=== PATIENT | female | born 1960 | race Caucasian/White ===

== ENCOUNTER → 2025-01-20 07:28 | Outpatient (REF) | payer MEDICARE, BC, SELFPAY | LOC: HWRAD 07:28 | PROVIDERS: ATTENDING PHYSICIAN Internal Medicine | DX: K80.20 Calculus of gallbladder without cholecystitis without obstruction (principal) | CPT/HCPCS: 76700 ==

== ENCOUNTER → 2025-03-11 10:40 | Outpatient (REF) | payer MEDICARE, BC, SELFPAY ==
[2025-03-11 11:25] LABS: Hematocrit 47.5 % (37.0-47.0); Hemoglobin 15.9 g/dL (12.0-16.0); Mean Corp Hgb Conc. 33.5 g/dL (33.0-37.0); Mean Corpuscular Hgb 29.9 pg (27.0-31.0); Mean Corpuscular Volume 89.3 fL (81.0-99.0); Mean Platelet Volume 9.3 fL (7.4-10.4); Platelet Count 225 10^3/uL (130-400); Red Blood Cell Count 5.32 10^6/uL (4.20-5.40); Red Cell Dist. Width 12.6 % (11.5-14.5)
[2025-03-11 11:51] LABS: ALT (SGPT) 58 U/L (0-35); AST (SGOT) 42 U/L (14-36); Albumin 4.5 g/dl (3.5-5.0); Alkaline Phosphatase 107 U/L (38-126); Blood Urea Nitrogen 18 mg/dl (7-17); Calcium 9.9 mg/dl (8.4-10.2); Carbon Dioxide 28 mmol/L (22-30); Chloride 107 mmol/L (98-107); Glucose 104 mg/dl (70-99); Potassium 4.9 mmol/L (3.5-5.1); Sodium 140 mmol/L (135-145); Total Bilirubin 0.8 mg/dl (0.2-1.3); Total Protein 7.2 g/dl (6.3-8.2); eGFR > 60.00
== END ==
LOC: SDSPAT 10:40
PROVIDERS: ATTENDING PHYSICIAN Surgery; FAMILY PHYSICIAN Internal Medicine
DX: Z01.818 Encounter for other preprocedural examination (principal)
CPT/HCPCS: 36415; 80053; 85027; 93005

== ENCOUNTER 2025-03-12 06:17 | Day surgery (SDC) | payer MEDICARE, BC, SELFPAY ==
[2025-03-11 10:46] VITALS: BMI 25.0
[2025-03-12] VITALS (10 sets, daily range): BP systolic 115–140; BP diastolic 66–92; BMI 25.0
[2025-03-12] MEDS: TYLENOL 1000 MG PO (08:46)
[2025-03-12] MEDS: NORMOSOL-R/PLASMALYTE-A 1000 IV (08:46)
[2025-03-12] MEDS: DILAUDID 0.25 MG IV ×2 (11:13→11:38)
== END 2025-03-12 12:53 | disposition home or self-care (01) ==
LOC: SDS 06:17
PROVIDERS: ATTENDING PHYSICIAN Surgery
DX: K80.10 Calculus of gallbladder with chronic cholecystitis without obstruction (principal); K66.0 Peritoneal adhesions (postprocedural) (postinfection)
CPT/HCPCS: 47563; 88304; 74300; 76000; A4300